=== PATIENT | male | born 1980 | race Caucasian/White ===

== ENCOUNTER 2016-12-13 22:30 | Emergency (ER) | payer SELFPAY | END 2016-12-14 01:49 | disposition left against medical advice (07) | LOC: ER 22:30 | DX: M54.5 Low back pain (principal); Z88.5 Allergy status to narcotic agent; W19.XXXA Unspecified fall, initial encounter; Z88.8 Allergy status to other drugs, medicaments and biological substances | CPT/HCPCS: 99282 ==